=== PATIENT | male | born 1975 | race Caucasian/White ===

== ENCOUNTER 2017-02-16 10:31 | Emergency (ER) | payer BC ==
[2017-02-16] MEDS ORDERED: Sodium Chloride 0.9% 10 ML Syringe FLUSH PRN (11:32)
--- NOTE | 2017-02-16 11:34 | EDM.PDOC ---
ED HPI GI/ABDOMINAL - General Chief Complaint: Abdominal Pain Stated Complaint: BLOOD IN STOOL Time Seen by Provider: 02/16/17 11:10 Source of Information: Reports: Patient History Limitations: Reports: No limitations - History of Present Illness INITIAL COMMENTS - FREE TEXT/NARRATIVE: Patient presents for evaluation and treatment of bright red blood in his stools. Patient reports that he is experiencing this since Sunday. He states that he was injured he was having this constantly [place] is coming and going. He reports that he had blood in stool the and today. He states it is a significant amount however, he has difficulty quantifying the amount. He denies any rectal pain. He does report some pain in the right upper quadrant of his abdomen. He describes this as a dull pressure worse with movements it is a constant ache that is a 4 x 10. Patient denies any fevers, chills, nausea or vomiting. Patient reports that he has had similar episodes to this before. He states it is underdeveloped the right upper quadrant pain nor is the blood last this long which prompted his visit to the ER today. He states in the past he has noticed that it started after drinking alcohol. He states that on Sunday he did have about 4 shots and 7 beers. He states it is not an everyday drinker. Last time he did drink alcohol was about 4 months ago. Patient reports a past medical history type 2 diabetes. Is not currently on any medications. He states that he was seen by internal medicine a few years His sugars were normal since he got his medicines. He states that he checks his sugar sporadically when he has been feeling dizzy for states that I sugar was 139. He also reports that this is a little more than normal and she's gained a little bit of weight recently. Past surgical history includes a cholecystectomy. Location: [facility] - Related Data Allergies/ADRs: Allergies Allergy/AdvReac Type Severity Reaction Status Date / Time No Known Allergies Allergy Verified 02/16/17 10:40 Home Meds: Home Meds Penicillin V Potassium 500 mg PO Q6HR #40 tab 02/16/17 [Rx] metFORMIN HCl [Metformin HCl ER] 500 mg PO DAILY #30 tab.er.24 02/16/17 [Rx] Past Medical History HEENT History: Reports: Impaired vision Cardiovascular History: Reports: Other (see below) Other Cardiovascular History: irregular rhythm Endocrine/Metabolic History: Reports: Diabetes, type II Other Endocrine/Metabolic History: no longer takes medication for DM II - Past Surgical History GI Surgical History: Reports: Cholecystectomy Social & Family History - Family History Family Medical History: Noncontributory - Tobacco Use Smoking Status *Q: Never Smoker Second Hand Smoke Exposure: Yes - Caffeine Use Caffeine Use: Reports: Energy drinks, Soda - Recreational Drug Use Recreational Drug Use: No ED ROS GENERAL - Review of Systems Review Of Systems: See Below Constitutional: Denies: fever, chills HEENT: Reports: Other (left upper dental pain) GI/Abdominal: Reports: Abdominal pain, Bloody stool, Distension, Hematochezia. Denies: Constipation, Diarrhea, Nausea, Vomiting Skin: Denies: jaundice, pruritis ED EXAM, GI/ABD - Physical Exam Exam: See Below Exam Limited By: No limitations General Appearance: alert, WD/WN, no apparent distress Nose: normal inspection Throat/Mouth: Normal inspection, Normal voice, No airway compromise Respiratory/Chest: no respiratory distress, lungs clear, normal breath sounds Cardiovascular: normal peripheral pulses, regular rate, rhythm, no murmur GI/Abdominal: normal bowel sounds, soft, tenderness (RUQ). No: McBurney's sign , Carpenter's sign Rectal (Males) Exam: Normal rectal tone, Heme + stool. No: Hemorrhoids Neurological: alert, oriented, normal cognition Psychiatric: normal affect, normal mood Skin Exam: Warm, Dry, Normal color Course - Vital Signs Last Recorded V/S: Last Vital Signs Temp 36.3 C 02/16/17 10:40 Pulse 95 02/16/17 10:40 Resp 16 02/16/17 10:40 BP 130/90 02/16/17 10:40 Pulse Ox 96 02/16/17 10:40 - Orders/Labs/Meds Orders: Active Orders 24 hr Category Date Time Status Peripheral IV Care [RC] . DIRECTED Care 02/16/17 11:33 Active Abdomen Pelvis w Cont [CT] Stat Exams 02/16/17 11:32 Taken Sodium Chloride 0.9% [Saline Flush] Med 02/16/17 11:32 Active 10 ml FLUSH ASDIRECTED PRN Peripheral IV Insertion Adult [OM.PC] Routine Oth 02/16/17 11:31 Ordered Medication Orders Sodium Chloride (Saline Flush) 10 ml FLUSH ASDIRECTED PRN PRN Reason: Keep Vein Open Last Admin: 02/16/17 11:43 Dose: 10 ml Labs: Laboratory Tests 02/16/17 02/16/17 02/16/17 Range/Units 11:40 11:40 11:40 WBC 5.31 (4.23-9.07) K/mm3 RBC 5.19 (4.63-6.08) M/mm3 Hgb 16.1 (13.7-17.5) gm/L Hct 45.2 (40.1-51.0) % MCV 87.1 (79.0-92.2) fl MCH 31.0 (25.7-32.2) pg MCHC 35.6 H (32.2-35.5) g/dl RDW Std Deviation 40.0 (35.1-43.9) fL Plt Count 208 (163-337) K/mm3 MPV 9.0 L (9.4-12.3) fl Neut % (Auto) 45.2 (34.0-67.9) % Lymph % (Auto) 36.3 (21.8-53.1) % [place] % (Auto) 16.4 H (5.3-12.2) % Eos % (Auto) 1.9 (0.8-7.0) Baso % (Auto) 0.2 (0.1-1.2) % Neut # (Auto) 2.40 (1.78-5.38) K/mm3 Lymph # (Auto) 1.93 (1.32-3.57) K/mm3 [place] # (Auto) 0.87 H (0.30-0.82) K/mm3 Eos # (Auto) 0.10 (0.04-0.54) K/mm3 Baso # (Auto) 0.01 (0.01-0.08) K/mm3 Manual Slide Review Normal smear ESR 15 (0-15) mm/hr Sodium (136-145) mEq/L Potassium (3.5-5.1) mEq/L Chloride (98-107) mEq/L Carbon Dioxide (21-32) mEq/L Anion Gap (5-15) BUN (7-18) mg/dL Creatinine (0.7-1.3) mg/dL Est Cr Clr Drug Dosing mL/min Estimated GFR (MDRD) (>60) mL/min BUN/Creatinine Ratio (14-18) Glucose (74-106) mg/dL Hemoglobin A1c 7.40 H (4.50-6.20) % Calcium (8.5-10.1) mg/dL Total Bilirubin (0.2-1.0) mg/dL GGT (15-85) U/L AST (15-37) U/L ALT (16-63) U/L Alkaline Phosphatase (46-116) U/L C-Reactive Protein (<1.0) mg/dL Total Protein (6.4-8.2) g/dl Albumin (3.4-5.0) g/dl Globulin gm/dL Albumin/Globulin Ratio (1-2) Lipase (73-393) U/L Urine Color (Yellow) Urine Appearance (Clear) Urine pH (5.0-8.0) Ur Specific [place] (1.005-1.030) Urine Protein (Negative) Urine Glucose (UA) (Negative) Urine Ketones (Negative) Urine Occult Blood (Negative) Urine Nitrite (Negative) Urine Bilirubin (Negative) Urine Urobilinogen (0.2-1.0) Ur Leukocyte Esterase (Negative) Urine RBC (0-5) /hpf Urine WBC (0-5) /hpf Ur Epithelial Cells (0-5) /hpf Urine Bacteria (FEW) /hpf Urine Mucus (FEW) /hpf 02/16/17 02/16/17 Range/Units 11:49 13:20 WBC (4.23-9.07) K/mm3 RBC (4.63-6.08) M/mm3 Hgb (13.7-17.5) gm/L Hct (40.1-51.0) % MCV (79.0-92.2) fl MCH (25.7-32.2) pg MCHC (32.2-35.5) g/dl RDW Std Deviation (35.1-43.9) fL Plt Count (163-337) K/mm3 MPV (9.4-12.3) fl Neut % (Auto) (34.0-67.9) % Lymph % (Auto) (21.8-53.1) % [place] % (Auto) (5.3-12.2) % Eos % (Auto) (0.8-7.0) Baso % (Auto) (0.1-1.2) % Neut # (Auto) (1.78-5.38) K/mm3 Lymph # (Auto) (1.32-3.57) K/mm3 [place] # (Auto) (0.30-0.82) K/mm3 Eos # (Auto) (0.04-0.54) K/mm3 Baso # (Auto) (0.01-0.08) K/mm3 Manual Slide Review ESR (0-15) mm/hr Sodium 140 (136-145) mEq/L Potassium 4.2 (3.5-5.1) mEq/L Chloride 105 (98-107) mEq/L Carbon Dioxide 23 (21-32) mEq/L Anion Gap 16.2 H (5-15) BUN 11 (7-18) mg/dL Creatinine 0.8 (0.7-1.3) mg/dL Est Cr Clr Drug Dosing 134.72 mL/min Estimated GFR (MDRD) > 60 (>60) mL/min BUN/Creatinine Ratio 13.8 L (14-18) Glucose 178 H (74-106) mg/dL Hemoglobin A1c (4.50-6.20) % Calcium 9.2 (8.5-10.1) mg/dL Total Bilirubin 0.6 (0.2-1.0) mg/dL GGT 55 (15-85) U/L AST 38 H (15-37) U/L ALT 87 H (16-63) U/L Alkaline Phosphatase 69 (46-116) U/L C-Reactive Protein < 0.2 (<1.0) mg/dL Total Protein 8.1 (6.4-8.2) g/dl Albumin 4.3 (3.4-5.0) g/dl Globulin 3.8 gm/dL Albumin/Globulin Ratio 1.1 (1-2) Lipase 260 (73-393) U/L Urine Color Light yellow (Yellow) Urine Appearance Clear (Clear) Urine pH 6.5 (5.0-8.0) Ur Specific [place] 1.010 (1.005-1.030) Urine Protein Negative (Negative) Urine Glucose (UA) Negative (Negative) Urine Ketones Negative (Negative) Urine Occult Blood Negative (Negative) Urine Nitrite Negative (Negative) Urine Bilirubin Negative (Negative) Urine Urobilinogen 0.2 (0.2-1.0) Ur Leukocyte Esterase Negative (Negative) Urine RBC 0-5 (0-5) /hpf Urine WBC 0-5 (0-5) /hpf Ur Epithelial Cells Not seen (0-5) /hpf Urine Bacteria Rare (FEW) /hpf Urine Mucus Not seen (FEW) /hpf Meds: Medications Generic Name Dose Route Start Last Admin Trade Name Freq PRN Reason Stop Dose Admin Sodium Chloride 10 ml 02/16/17 11:32 02/16/17 11:43 Saline Flush FLUSH 10 ml ASDIRECTED PRN Administration Keep Vein Open Discontinued Medications Generic Name Dose Route Start Last Admin Trade Name Freq PRN Reason Stop Dose Admin Diatrizoate Meglum/Diatrizoate Sod 90 ml 02/16/17 12:36 02/16/17 12:58 Gastrografin 37% PO 02/16/17 12:37 90 ml ONETIME ONE Administration Iopamidol 125 ml 02/16/17 12:36 02/16/17 12:58 Isovue-300 (61%) IVPUSH 02/16/17 12:37 125 ml ONETIME ONE Administration Sodium Chloride 10 ml 02/16/17 12:36 02/16/17 12:58 Saline Flush FLUSH 02/16/17 12:37 10 ml ONETIME ONE Administration - Radiology Interpretation Free Text/Narrative:: CT of the abdomen and pelvis with contrast impression per [facility]: 1. No acute findings. Hiatal hernia contains fat. Status post cholecystectomy. Hepatic steatosis. CT Results Date: 02/16/17 - Re-Assessments/Exams Free Text/Narrative Re-Assessment/Exam: 02/16/17 13:42 The patient's lab studies and CT results have returned. Wbc is normal at 5.31, hemoglobin is 16.1 and platelets are 208. CRP is within normal limits at less than 0.2. ESR is within normal limits at 15. A1c is elevated 1.40, this correlates to a average blood sugar in the 170s. Sodium is 140 potassium is 4.2 and chloride is 105. Anion gap is 16.2. Glucose is 178. AST slightly elevated at 38, ALT slightly elevated at 87. Total bili is normal at 0.6. GGT is normal at 55. Lipase is normal at 260. I discussed these with the patient. We discussed starting metformin versus diet and exercise and follow-up with his primary. He would like to restart the metformin. I did advise that this can cause a little but of upset stomach. He is aware. We will restart the metformin at 500 mg extended release daily. He is to follow up with his primary care provider for his diabetes as well as for his bloody stools. Likely requires a colonoscopy to further evaluate. Will discharge home at this time. Discharge instructions as documented 02/16/17 13:58 UA is clear. Will discharge home. 02/16/17 14:01 Patient requests antibiotics for the abscesses tooth. Will start PCN V 500mg q6hr #40. Departure - Departure Time of Disposition: 13:43 Disposition: Home, Self-Care 01 Condition: good Clinical Impression: Bloody stool, Diabetes type 2, uncontrolled Prescriptions: Penicillin V Potassium 500 mg PO Q6HR #40 tab metFORMIN HCl [Metformin HCl ER] 500 mg PO DAILY #30 tab.er.24 Instructions: Type 2 Diabetes Mellitus, Adult, [id number] Referrals: PCP,None [Primary Care Provider] - Forms: ED Department Discharge Additional Instructions: Take the metformin as prescribed. One tab daily. Take this in the evening. I recommend you check your blood sugars at least once a day. Rest. Clear liquids and a bland diet. Avoid alcohol. Avoid NSAIDS as these can cause GI bleeding. Followup with your primary care provider next week. Recommends colonoscopy to further evaluate the bloody stools. Also followup for your diabetes. Please return to the ER should your symptoms change or worsen. - My Orders Last 24 Hours: My Active Orders 02/16/17 11:31 Peripheral IV Insertion Adult [OM.PC] Routine 02/16/17 11:32 Abdomen Pelvis w Cont [CT] Stat Sodium Chloride 0.9% [Saline Flush] 10 ml FLUSH ASDIRECTED PRN 02/16/17 11:33 Peripheral IV Care [RC] . DIRECTED - Assessment/Plan Last 24 Hours: My Active Orders 02/16/17 11:31 Peripheral IV Insertion Adult [OM.PC] Routine 02/16/17 11:32 Abdomen Pelvis w Cont [CT] Stat Sodium Chloride 0.9% [Saline Flush] 10 ml FLUSH ASDIRECTED PRN 02/16/17 11:33 Peripheral IV Care [RC] . DIRECTED
[2017-02-16] MEDS ORDERED: Diatrizoate Meglumine/Diatrizoate Sodium 37% 120 ML Bottle PO ONE (12:36)
[2017-02-16] MEDS ORDERED: Sodium Chloride 0.9% 10 ML Syringe FLUSH ONE (12:36)
[2017-02-16] MEDS ORDERED: Iopamidol 612 MG/ML 150 ML Bottle IVPUSH ONE (12:36)
[2017-02-16 14:08] VITALS: BP 137/102
--- NOTE | 2017-02-18 19:21 | CT ---
CT abdomen and pelvis Technique: Multiple axial sections were obtained from above the dome of the diaphragm inferiorly through the pubic symphysis. Intravenous and oral contrast was utilized. Delayed images have been performed through the bladder. Comparison: Previous abdominal CT of 06/26/09 is available. Findings: Visualized lung bases show nothing acute. Liver shows diffuse fatty infiltration. No focal abnormality identified within the liver. Spleen appears within normal limits. Adrenal glands show no nodule. Pancreas appears within normal limits. Kidneys show symmetric contrast enhancement without hydronephrosis or mass. Aorta shows no aneurysmal dilatation. No retroperitoneal adenopathy or mesenteric abnormalities are seen. Appendix not visualized. Increased stool seen within the left colon. Right colon is not identified and please correlate if this represents normal variant or if patient has had previous colectomy. No bowel dilatation is seen. No pelvic mass or adenopathy is noted. Small fat-containing bilateral inguinal hernias are noted. No free fluid or inflammatory change is seen. Delayed images show contrast within both distal ureters and within the bladder. Bone window settings were reviewed which appear within normal limits for the patient's age. Incidental note of fat-containing umbilical hernia. Impression: 1. Normal right-sided colon not seen presumably from previous hemicolectomy. Please correlate with patient's surgical history. Findings otherwise represent normal variant. 2. Mild increased stool within the left colon. 3. Other incidental findings as described above. Diagnostic code #2 Agree with preliminary report issued by [facility] (preliminary [facility] report dictated on 02/16/17, 2:14 PM Central Time)
== END 2017-02-16 14:03 | disposition home or self-care (01) ==
LOC: JD.ED 10:31
DX: E11.9 Type 2 diabetes mellitus without complications (principal); K92.1 Melena; Z79.899 Other long term (current) drug therapy; Z90.89 Acquired absence of other organs
CPT/HCPCS: 36415; 74177; 80053; 81001; 82977; 83036; 83690; 85025; 85652; 86140; 99284; J7050; Q9963; Q9967; 99283